=== PATIENT | male | born 1955 | race Caucasian/White ===

== ENCOUNTER → 2019-03-26 | Outpatient (CLI) | payer OTHER | LOC: WOUNDCARE 12:39 | PROVIDERS: ATTEND Surgery | DX: L97.322 Non-pressure chronic ulcer of left ankle with fat layer exposed (principal); I87.333 Chronic venous hypertension (idiopathic) with ulcer and inflammation of bilateral lower extremity; L97.312 Non-pressure chronic ulcer of right ankle with fat layer exposed; T65.222A Toxic effect of tobacco cigarettes, intentional self-harm, initial encounter; I70.243 Atherosclerosis of native arteries of left leg with ulceration of ankle; F17.218 Nicotine dependence, cigarettes, with other nicotine-induced disorders | CPT/HCPCS: 99204 ==

== ENCOUNTER → 2019-04-09 | Outpatient (CLI) | payer OTHER | LOC: WOUNDCARE 08:04 | PROVIDERS: ATTEND Surgery | DX: L97.322 Non-pressure chronic ulcer of left ankle with fat layer exposed (principal); I87.333 Chronic venous hypertension (idiopathic) with ulcer and inflammation of bilateral lower extremity; L97.312 Non-pressure chronic ulcer of right ankle with fat layer exposed; T65.222A Toxic effect of tobacco cigarettes, intentional self-harm, initial encounter; F17.218 Nicotine dependence, cigarettes, with other nicotine-induced disorders; I70.243 Atherosclerosis of native arteries of left leg with ulceration of ankle; I96 Gangrene, not elsewhere classified | CPT/HCPCS: 99213 ==